=== PATIENT | female | born 1955 | race Caucasian/White ===

== ENCOUNTER 2024-02-18 13:37 | Inpatient (IN) | payer MEDICARE ==
[~2024-02-18] VITALS: Ht 154.9 cm; Wt 54.3 kg
[2024-02-18] MEDS ORDERED: Ketorolac Tromethamine 15mg Vial IV ONE (13:45)
[2024-02-18] MEDS ORDERED: Ondansetron HCl 2 MG / ML 2ML Vial IV ONE (13:45)
[2024-02-18 14:25] LABS: BASOPHILS ABSOLUTE AUTO 0.04 K/mm3 (0.00-0.23); BASOPHILS PERCENT AUTO 1 % (0-2); EOSINOPHILS ABSOLUTE AUTO 0.07 K/mm3 (0.00-0.68); EOSINOPHILS PERCENT AUTO 1 % (0-6); Hemoglobin 9.8 g/dL (11.5-16.0); IMMATURE GRAN ABSOLUTE AUTO 0.03 K/mm3 (0.00-0.10); IMMATURE GRAN PERCENT AUTO 0 % (0-1); LYMPHOCYTES ABSOLUTE AUTO 2.01 K/mm3 (0.84-5.20); LYMPHOCYTES PERCENT AUTO 26 % (21-46); MONOCYTES PERCENT AUTO 3 % (4-13); Mean Corpuscular HGB 24.6 pg (26.0-34.0); Mean Corpuscular HGB Conc 30.6 g/dL (31.5-36.5); Mean Corpuscular Volume 80 fL (80-100); Mean Platelet Volume 9.6 fL (9.1-12.4); NEUTROPHILS ABSOLUTE AUTO 5.37 K/mm3 (1.96-9.15); NEUTROPHILS PERCENT AUTO 70 % (41-73); Platelet Count 293 K/mm3 (150-400); RDW Coefficient Variation 16.8 % (11.7-14.2); RDW Standard Deviation 48.6 fL (35.1-46.3); Red Blood Cell Count 3.98 M/mm3 (3.80-5.20); White Blood Cell Count 7.72 K/mm3 (4.00-11.30)
[2024-02-18 14:43] LABS: Albumin, Blood 3.5 g/dL (3.4-5.0); Albumin/Globulin Ratio 1.2 (0.8-1.8); Bilirubin, Total 0.2 mg/dL (0.1-1.0); Bun/Creatinine Ratio 32.7 (12.0-20.0); Calcium, Blood 9.2 mg/dL (8.5-10.1); Creatinine, Blood 0.67 mg/dL (0.40-1.00); Total Protein, Blood 6.5 g/dL (6.4-8.2)
[2024-02-18] MEDS ORDERED: GLUCOPHAGE1000 M1 PO (15:01)
[2024-02-18] MEDS ORDERED: POTASSIUM CITRA5 M10 PO (15:01)
[2024-02-18] MEDS ORDERED: Enalapril Malea20 MG PO (15:01)
[2024-02-18] MEDS ORDERED: JARDIANCE25 MG PO (15:01)
[2024-02-18] MEDS ORDERED: MULVITA PO (15:02)
[2024-02-18] MEDS ORDERED: ASCO500 PO (15:02)
[2024-02-18] MEDS ORDERED: Morphine Sulfate 4 MG/1 ML Injection IV ONE ×2 (15:20→16:05)
[2024-02-18 15:45] LABS: Source, Urine Clean Catch
[2024-02-18 15:49] LABS: Appearance, Urine Hazy (Clear); Bilirubin, Urine Neg (Neg); Blood, Urine 2+ (Neg); Color, Urine Yellow (P-Yellow); Glucose Qualitative, Urine 4+ (Neg); Ketones, Urine Neg (Neg); Leukocyte Esterase, Urine 1+ (Neg); Nitrite, Urine Pos (Neg); Protein, Urine 1+ (Neg); Urobilinogen, Urine NORM (Normal)
[2024-02-18 15:59] LABS: Bacteria Many /hpf; Squamous Epithelial Cells Few /hpf (Few)
[2024-02-18] MEDS ORDERED: CefTRIAXone Sodium 1,000 MG in NS 100 ML IV ONE (16:10)
[2024-02-18] MEDS ORDERED: Prochlorperazine Edisylate 10 mg Vial IV ONE (16:10)
[2024-02-18] MEDS ORDERED: HYDROmorphone HCl/Pf 1MG SYR IV ONE (16:45)
[2024-02-18] MEDS ORDERED: Lactated Ringer's 1,000 ML IV ONE ×2 (17:30)
[2024-02-18] MEDS ORDERED: NS 1,000 ML IV SCH (18:55)
[2024-02-18] MEDS ORDERED: Acetaminophen 325 MG TABLET PO PRN (18:55)
[2024-02-18] MEDS ORDERED: OxyCODONE HCL 5 MG TAB PO PRN (18:55)
[2024-02-18] MEDS ORDERED: Ondansetron HCl 2 MG / ML 2ML Vial IV PRN (18:55)
[2024-02-18] MEDS ORDERED: Acetaminophen 500 MG Tab PO ONE (19:00)
[2024-02-18] MEDS ORDERED: FentaNYL Citrate 50 MCG/ML 2 ML Injection IV PRN (19:00)
[2024-02-18] MEDS ORDERED: FLU VACC TS2024-25(6MOS UP)/PF 45 MCG/0.5 ML SYRINGE IM SCH (19:00)
[2024-02-18] MEDS ORDERED: NS 1,000 ML IV ONE (19:53)
[2024-02-18] MEDS ORDERED: POTASSIUM CITR15 ME1 PO (20:41)
[2024-02-18] MEDS ORDERED: Crestor40 MG PO (20:43)
[2024-02-18] MEDS ORDERED: Sennosides 8.6 MG Tab PO SCH (21:00)
[2024-02-18] MEDS ORDERED: Lactobacil 2-S.Thermo-Bifido 1 1 Cap PO SCH (21:00)
[2024-02-18] MEDS ORDERED: Docusate Sodium 100 MG Cap PO SCH (21:00)
[2024-02-18 22:05] VITALS: BP 94/53
[2024-02-18] MEDS ORDERED: Lactated Ringer's 500 ML IV ONE (23:00)
[2024-02-19] VITALS (44 sets, daily range): BP systolic 83–111; BP diastolic 32–82
[2024-02-19] MEDS ORDERED: Midodrine 5 MG Tab PO SCH ×2 (04:00→12:00)
--- NOTE | 2024-02-19 05:12 | NUR ---
PT BP UPOD ADMIT TO FLOOR 94/53. HOSPITALSIT NOTIFIED AND BOLUS 500 ML LR GIVEN. UPON RECHECK AM VS BP 88/49. HOSPITALIST NOTIFIED AND MIDODRINE 5 MG GIVEN.
--- NOTE | 2024-02-19 05:53 | NUR ---
HOSPITALIST NOTIFIED THAT PT BP 89/55 AND ASYMPTOMATIC AFTER RECEIVING MIDODRINE 5 MG. ANOTHER ONE TIME DOSE MIDODRINE 5 MG GIVEN. HOSPITALIST STATES THAT IF PT BP DOES NOT IMPROVE IN NEXT 1-2 HOURS AFTER RECEIVING MIDODRINE, PT SHOULD BE TRANSFERRED TO ICU FOR HIGHER LEVEL OF CARE.
[2024-02-19] MEDS ORDERED: Midodrine 5 MG Tab PO ONE (05:55)
[2024-02-19 06:40] LABS: Hematocrit 27.3 % (33.0-51.0); Hemoglobin 8.3 g/dL (11.5-16.0); Mean Corpuscular HGB 24.5 pg (26.0-34.0); Mean Corpuscular HGB Conc 30.4 g/dL (31.5-36.5); Mean Corpuscular Volume 81 fL (80-100); Mean Platelet Volume 9.8 fL (9.1-12.4); Platelet Count 181 K/mm3 (150-400); RDW Coefficient Variation 17.3 % (11.7-14.2); RDW Standard Deviation 50.4 fL (35.1-46.3); Red Blood Cell Count 3.39 M/mm3 (3.80-5.20); White Blood Cell Count 19.22 K/mm3 (4.00-11.30)
[2024-02-19 06:59] LABS: Bun/Creatinine Ratio 31.1 (12.0-20.0); Creatinine, Blood 0.87 mg/dL (0.40-1.00); Magnesium, Blood 1.7 mg/dL (1.6-2.4); Potassium, Blood 4.3 mmol/L (3.5-5.5)
--- NOTE | 2024-02-19 07:37 | NUR ---
SHIFT SUMMARY NOC ADMIT FROM ED WITH HYDRONEPHRITIS BL FLANK PAIN. CONSULT WITH IR FOR NEPRHOSTOMY PLACEMENT TODAY. PT HAS BEEN NPO SINCE MIDNIGHT. PT BP HAS BEEN SOFT SINCE ADMIT TO FLOOR 94/53 AND LR 500 ML BOLUS GIVEN, BP 88/49, MIDODRINE 5 MG GIVEN. RECEIVING INFUSION OF NS @ 100 ML/HR. PT HAS NOT HAD ANY C/O OF FLANK PAIN SINCE ADMIT TO FLOOR. RX HAS BEEN RECONCILED. PT IS A/O X 4. PT PASSED KIDNEY STONE AND IT WAS SENT OUT FOR ANAYLYSIS. INDEPENDENT/CONTINENT. PT CURRENTLY RESTING WITH BED IN LOWEST POSITION, AND CALL LIGHT WITHIN REACH.
[2024-02-19] MEDS ORDERED: NS 250 ML IV ONE (08:10)
[2024-02-19] MEDS ORDERED: Enalapril Maleate 5 MG Tab PO SCH (09:00)
[2024-02-19] MEDS ORDERED: Enoxaparin 40 MG/0.4 ML SYR SC SCH (09:00)
--- NOTE | 2024-02-19 10:13 | NUR ---
REPORT GIVEN TO ALFREDO SHEPHERD IN ICU @6370
[2024-02-19] MEDS ORDERED: THERA-D2000 UNIT PO (11:18)
[2024-02-19] MEDS ORDERED: KRILL OIL 5001 EACH PO (11:18)
[2024-02-19] MEDS ORDERED: Apple Cider Vi300 MG PO (11:19)
--- NOTE | 2024-02-19 13:56 | NUR ---
PROVIDER NOTIFICATION DR. JIMENEZ CALLED AND NOTIFIED THAT PT MAP WAS IN THE 40S AND LEVO WAS STARTED. MIDODRINE DISCONTINUED PER PROVIDER.
--- NOTE | 2024-02-19 15:15 | NUR ---
AM NOTE: PER QUALITY ASSURANCE ENGINEER RN PT HAD BEEN HYPOTENSIVE SINCE ARRIVAL TO MEDICAL FLOOR. PER EMAR, PT RECEIVED 2 LITER BOLUS IN ER AND .5L BOLUS UPON ARRIVAL TO FLOOR. PT REMAINED HYPOTENSIVE POST FLUID ADMINISTRATION WITH A BP OF 88/49 AT 0345. ONE TIME MIDODRINE ORDERED AND GIVEN AT 0408. REPEAT BP @ 0540 OF 89/55. ONE TIME MIDODRINE GIVEN AT 0602. AM BP @0723 OF 88/56. PER QUALITY ASSURANCE ENGINEER RN, HOSPITALIST RECOMMENDED TRANSFER TO ICU ON PRESSOR DRIP IS BP REMAINED UNCHANGED. SPOKE WITH DR. JIMENEZ AT APPROX 0730 TO EXPLAIN OVERNIGHT EVENTS AND AM VS. HOSPITALIST STATED AT THAT TIME HE WOULD LOOK OVER PT CHART AND TREND THEN CALL THIS RN BACK. AT APPROX 0820 DR. JIMENEZ CALLED THIS RN BACK AND GAVE TELEPHONE ORDER FOR TRANSFER TO ICU AND THAT HE WOULD PLACE ORDER FOR LEVOPHED.
[2024-02-19] MEDS ORDERED: CefTRIAXone Sodium 2,000 MG in NS 100 ML IV SCH (16:07)
--- NOTE | 2024-02-19 17:16 | NUR ---
PATIENT HANDOFF PATIENT TO FLOOR FROM MEDICAL FLOOR. SEE PREVIOUS NOTE. LEVO RUNNING AT 3. 2X PIV OBTAINED WITH US. ABX ORDERED. REPORT GIVEN TO AYAZ ELKINS RN
--- NOTE | 2024-02-19 17:16 | NUR ---
ASSUMING CARE OF PATIENT FROM [place]. PT IS WITHOUT ANY COMPLAINTS, IV CEFTRI- AXONE INITIATED FROM . [employer] HAS VISITORS FROM THE AREA HERE TO SEE HER AND SHE IS HAPPILY ENJOYING HER COMPANY. HAS BEEN IN AND OUT. NOR- EPI IS AT [facility].
[2024-02-19] MEDS ORDERED: Insulin Human Lispro 100 Units/ML 3ML Syringe SC SCH ×2 (21:00)
[2024-02-20] VITALS (25 sets, daily range): BP systolic 101–133; BP diastolic 51–84
[2024-02-20 04:28] LABS: BASOPHILS ABSOLUTE AUTO 0.03 K/mm3 (0.00-0.23); BASOPHILS PERCENT AUTO 0 % (0-2); EOSINOPHILS PERCENT AUTO 1 % (0-6); Hematocrit 25.3 % (33.0-51.0); Hemoglobin 7.8 g/dL (11.5-16.0); IMMATURE GRAN ABSOLUTE AUTO 0.78 K/mm3 (0.00-0.10); IMMATURE GRAN PERCENT AUTO 4 % (0-1); LYMPHOCYTES ABSOLUTE AUTO 1.41 K/mm3 (0.84-5.20); LYMPHOCYTES PERCENT AUTO 8 % (21-46); MONOCYTES PERCENT AUTO 6 % (4-13); Mean Corpuscular HGB 24.5 pg (26.0-34.0); Mean Corpuscular HGB Conc 30.8 g/dL (31.5-36.5); Mean Corpuscular Volume 79 fL (80-100); Mean Platelet Volume 10.1 fL (9.1-12.4); NEUTROPHILS ABSOLUTE AUTO 15.45 K/mm3 (1.96-9.15); NEUTROPHILS PERCENT AUTO 82 % (41-73); Platelet Count 184 K/mm3 (150-400); RDW Coefficient Variation 17.4 % (11.7-14.2); RDW Standard Deviation 50.5 fL (35.1-46.3); Red Blood Cell Count 3.19 M/mm3 (3.80-5.20); White Blood Cell Count 18.87 K/mm3 (4.00-11.30)
[2024-02-20 04:48] LABS: Albumin, Blood 2.3 g/dL (3.4-5.0); Anion Gap 12 mmol/L (3-11); Blood Urea Nitrogen 23 mg/dL (8-24); Bun/Creatinine Ratio 32.9 (12.0-20.0); CO2, Blood 20 mmol/L (21-32); Calcium, Blood 8.3 mg/dL (8.5-10.1); Chloride, Blood 117 mmol/L (98-108); Glomerular Filtration Rate 95 (60-); Glucose, Blood 128 mg/dL (70-99); Potassium, Blood 4.3 mmol/L (3.5-5.5); Sodium, Blood 145 mmol/L (136-145)
--- NOTE | 2024-02-20 06:08 | NUR ---
SHIFT SUMMARY PATIENT SLEPT MOST OF NIGHT. A&OX4 PATIENT DID NOT WANT TO SLEEP WITH GOWN ON, STATED " I SLEEP IN THE NUDE AT HOME". LUNGS CLEAR BILATERALY, PATIENT HAD CHEESE AND CRACKERS FOR A SNACK. PATIENT USES TOILET IN ROOM WITH NURSE ASSIST. URINE CLEAR AND YELLOW. LEVOPHED RUNNING @ 5 MCG/MIN AND NORMAL SALINE @100MLS. SBP 115-130'S, HR 70'S. CALL LIGHT WITHIN REACH.
--- NOTE | 2024-02-20 06:25 | NUR ---
UPDATE PATIENT DRESSED IN GOWN AND SITTING IN RECLINER WITH PHONE EATING OBDULIO CRACKERS WITH NURSE ASSIST. CALL LIGHT WITHIN REACH
[2024-02-20] MEDS ORDERED: Midodrine 5 MG Tab PO SCH (09:00)
[2024-02-20] MEDS ORDERED: Iron Dextran 50 MG / ML 2ML Vial IV ONE (09:55)
--- NOTE | 2024-02-20 11:15 | NUR ---
UPDATE ASSUMED CARE OF PT @ 0700, BEDSIDE REPORT RECEIVED FROM [facility] NURSE. PT A&OX4, FOLLOWING COMMANDS, AMBULATES WITHOUT ASSISTANCE, INDEPENDENT. LEVOPHED TITRATED OFF ALMOST IMMEDIATELY AFTER ASSUMING CARE. BP STABLE, MAP >65, STARTED MIDODRINE TID. PT STATES "I FEEL GOOD, I'M READY TO LEAVE". DENIES BACK PAIN, NO OTHER COMPLAINTS. GOOD URINE OUTPUT, TOLERATING PO INTAKE. PT NOW MED NO TELE, POSSIBLY DC HOME TODAY.
[2024-02-20] MEDS ORDERED: Iron Dextran 975 MG in NS 250 ML IV ONE (11:30)
[2024-02-20] MEDS ORDERED: CefTRIAXone Sodium 2,000 MG in NS 100 ML IV ONE (12:20)
[2024-02-20 13:12] LABS: Hematocrit 24.2 % (33.0-51.0); Hemoglobin 7.5 g/dL (11.5-16.0); Mean Corpuscular Volume 81 fL (80-100); Mean Platelet Volume 9.8 fL (9.1-12.4); Platelet Count 167 K/mm3 (150-400); RDW Coefficient Variation 17.5 % (11.7-14.2); RDW Standard Deviation 50.8 fL (35.1-46.3); White Blood Cell Count 15.07 K/mm3 (4.00-11.30)
[2024-02-20] MEDS ORDERED: MIDO5 PO (14:27)
[2024-02-20] MEDS ORDERED: VISBIOME 112.51 EACH PO (14:29)
[2024-02-20] MEDS ORDERED: SULTRIDS PO (14:31)
--- NOTE | 2024-02-20 14:48 | NUR ---
D/C PT DISCHARGED TO HOME WITH SPOUSE. AMBULATES WELL WITHOUT ASSISTANCE. IV DC'D. [facility] AND CONFIRMED VIA PHONE.
[2024-02-23 09:20] LABS: CALCULI MASS 90 mg
== END 2024-02-20 16:41 | disposition home or self-care (01) | DRG 871 ==
LOC: ER 13:37 → MEDS 18:50 → ICUE 02-19 09:00
PROVIDERS: Family Medicine; Nurse Practitioner Acute Care; Physician Assistant; ADMIT Student in an Organized Health Care Education/Training Program
PROC: 3E033XZ Introduction of Vasopressor into Peripheral Vein, Percutaneous Approach (ICD-10-PCS; principal; 2024-02-19)
PROC: 3E03329 Introduction of Other Anti-infective into Peripheral Vein, Percutaneous Approach (ICD-10-PCS; 2024-02-20)
DX: A41.59 Other Gram-negative sepsis (principal); R65.21 Severe sepsis with septic shock; N13.6 Pyonephrosis; E11.9 Type 2 diabetes mellitus without complications; I10 Essential (primary) hypertension; N20.0 Calculus of kidney; D50.9 Iron deficiency anemia, unspecified; K59.09 Other constipation; Z88.1 Allergy status to other antibiotic agents; Z79.84 Long term (current) use of oral hypoglycemic drugs; Z79.899 Other long term (current) drug therapy; Z87.442 Personal history of urinary calculi
CPT/HCPCS: 36415; 74176; 74177; 80048; 80053; 80069; 81001; 82365; 82947; 83605; 83735; 85025; 85027; 87040; 87077; 87086; 87186; 94762; 96361; 96365-59; 96375; 96376; 99285-25; A9270; J0696; J0780; J1170; J1750; J1885; J2270; J2405; J7030; J7050; J7060; J7120; Q9967